=== PATIENT | male | born 1945 | race Caucasian/White ===

== ENCOUNTER 2016-05-05 08:02 | Day surgery (SDC) | payer MEDICARE, OTHER ==
[~2016-05-05] VITALS: Ht 170.2 cm; Wt 79.4 kg
[~2016-05-05 08:02] MED LIST: 0.9% Sodium Chloride 1,000 ML IV SCH; ASPI-973 PO; HYDR-4003 PO; MULT-1018 PO; OMEG500C PO; SIMV40TA5 PO; Sodium Chloride LOK Flush 10 mL Syringe IV PRN; ZOV800 PO; fentaNYL-PF 50 mCg/mL 2 mL Inj IVPUSH PRN
[2016-05-05 08:17] VITALS: BP 135/80; PULSE 66; RESP 14; O2SAT 99
[2016-05-05 09:32] VITALS: BP 135/76; PULSE 65; RESP 12; O2SAT 94
[2016-05-05 09:43] VITALS: BP 120/77; PULSE 70; RESP 16; O2SAT 92
[2016-05-05 09:48] VITALS: BP 100/82; PULSE 70; RESP 16; O2SAT 96
--- NOTE | 2016-05-05 09:55 | ENDO ---
[address] [address] ENDOSCOPY PROCEDURE PATIENT: KAILEY ACEVEDO : 1945 MR#: [id number] ADMIT: 05/05/2016 JOB ID: [id number] DATE OF SERVICE: 05/05/2016 PROCEDURE PERFORMED: Colonoscopy. INDICATIONS: Screening. ASA CLASSIFICATION: The patient's ASA classification is II. MALLAMPATI SCORE: Mallampati score was 2. MEDICATIONS: 1. Versed 4 mg. 2. Fentanyl 100 mcg. INSTRUMENT USED: PCF-H180AL. PREPARATION QUALITY: Good. PROCEDURE DETAILS: After informed consent was obtained, the patient was brought into the GI suite, where he was placed on oxygen via nasal cannula and monitored with continuous pulse oximeter, telemetry, and blood pressure monitoring. A time-out was performed. Then, he was placed in the left lateral decubitus position and medications were administered for sedation. Digital rectal exam with palpation of the prostate was performed which was unremarkable. The colonoscope was then inserted into the rectum and advanced under direct visualization to the cecum, which was identified by the presence of the ileocecal valve and appendiceal orifice. Once the cecum was reached, the colonoscope was withdrawn back into the rectum, as the mucosa and lumen were examined. In the rectum, retroflexion was performed. Following retroflexion, remaining air in the rectum was suctioned, and procedure was completed. FINDINGS: 1. In the ascending colon there was an approximately 6-7 mm polyp, sessile, that was removed with a hot snare piecemeal. Following removal, there was bleeding at the polypectomy site. Therefore, one [employer] clip was placed successfully for hemostasis. 2. The sigmoid colon there was an approximately 4 mm pedunculated polyp that was removed with a hot snare. 3. In the rectum proximal portion there was an approximately 4 mm sessile polyp that was removed with a cold snare. 4. At the anal verge, there were prominent anal papillae. 5. Scattered throughout the sigmoid colon were diverticula. IMPRESSION: 1. Ascending polyp. 2. Sigmoid polyp. 3. Rectal polyp. 4. Sigmoid diverticulosis. 5. Prominent anal papillae. COMPLICATIONS: None. ESTIMATED BLOOD LOSS: Less than 5 mL.
--- NOTE | 2016-05-08 12:08 | PATH ---
SURGICAL PATHOLOGY Attending Physician:Jaspreet Woodruff CASE STATUS: Signed Out PATIENT NAME: KAILEY ACEVEDO PID: [id number] : 1945 DATE COLLECTED:05/05/2016 16:48 SPECIMEN: 1: Colon, Biopsy 2: Colon, Biopsy 3: Rectum, Biopsy CLINICAL HISTORY: A: ASCENDING COLON POLYP X1 B: SIGMOID COLON POLYP X1 C: RECTAL POLYP X1 FINAL DIAGNOSIS: 1.ASCENDING COLON POLYP: SESSILE SERRATED ADENOMA. 2.SIGMOID COLON POLYP: HYPERPLASTIC POLYP. 3.RECTAL POLYP: HYPERPLASTIC POLYP. ICD10 CODE D12.6 GROSS DESCRIPTION: The specimen is received in three formalin filled containers labeled with the patient's name. 1). The specimen is sublabeled "ascending colon polyp x1" and consists of 4 portions of tissue which aggregate to 0.5 x 0.5 x 0.4 CM. The specimen is entirely submitted in cassette 1A. 2). The specimen is sublabeled "sigmoid colon polyp x1" and consists of a 0.6 0.3 x 0.3 CM portion of tissue which is entirely submitted in cassette 2A. 3). The specimen is sublabeled "rectal polyp x1" and consists of a 0.3 x 0.2 x 0.2 CM portion of tissue which is entirely submitted in cassette 3A. 05/05/2016 DAC MICRO DESCRIPTION: See diagnosis. ICD-9 CODES: CPT CODES: 1: 16838 2: 99881 3: 51563 Electronically Signed Out Sorin He MD [facility] Pathology [facility] [place] [address] Technical component performed at [facility], [facility] [address], [address]
== END 2016-05-05 23:59 | disposition home or self-care (01) ==
LOC: END 08:02
PROVIDERS: ATTEND Internal Medicine Gastroenterology
DX: Z12.11 Encounter for screening for malignant neoplasm of colon (principal); D12.2 Benign neoplasm of ascending colon; D12.5 Benign neoplasm of sigmoid colon; K62.1 Rectal polyp; K57.32 Diverticulitis of large intestine without perforation or abscess without bleeding; K62.89 Other specified diseases of anus and rectum
CPT/HCPCS: 45385; 88305; J2250; J7030